=== PATIENT | female | born 1990 | race Caucasian/White ===

== ENCOUNTER → 2019-08-26 | Outpatient (CLI) | payer OTHER ==
--- NOTE | 2019-08-27 08:48 | Diagnostic Imaging Report ---
#[id number] - MGDXLT #UNILATERAL LEFT DIGITAL DIAGNOSTIC MAMMOGRAM WITH CAD: 08/26/2019 CLINICAL: Palpable lump left breast. No prior exams were available for comparison. The tissue of the left breast is heterogeneously dense, which lowers the sensitivity of mammography. Current study was also evaluated with a Computer Aided Detection (CAD) system. There is a 4.9 cm oval high density mass with a circumscribed margin in the left breast at 12 o'clock middle depth. No other significant masses or calcifications are seen in the breast. IMPRESSION: INCOMPLETE: NEEDS ADDITIONAL IMAGING EVALUATION The 4.9 cm oval high density mass in the left breast is indeterminate. An ultrasound is recommended and will be performed during the same visit. LISA MUNOZ M.D. kw/:08/26/2019 16:08:54 Associate Professor Of Library Science: Ara ALEX)(Balbir), [facility] Mammogram BI-RADS: 0 Indeterminate
--- NOTE | 2019-08-27 08:48 | Diagnostic Imaging Report ---
#[id number] - USBRELIMLT ULTRASOUND OF THE LEFT BREAST : 08/26/2019 Comparison is made to exam dated: 08/26/2019 mammogram - [facility]. Color flow and real-time ultrasound were performed on the left breast. Hernández scale images of the real-time examination were reviewed. There is a 3.3 cm oval mass with a lobulated margin in the left breast at 1 o'clock posterior depth. This oval mass is hypoechoic. This correlates with mammography findings. IMPRESSION: SUSPICIOUS OF MALIGNANCY - FOLLOW-UP RECOMMENDED The 3.3 cm oval mass in the left breast is suspicious. An ultrasound guided biopsy is recommended. A phone call was made to the physician's office. The patient has been or will be contacted. LISA MUNOZ M.D. kw/:08/26/2019 16:10:56 Safety Deposit Clerk: COURTNEY WARREN [facility], [facility] letter sent: Biopsy Required Ultrasound BI-RADS: 4 Suspicious abnormality
== END ==
LOC: US 13:55
PROVIDERS: ATTEND Obstetrics & Gynecology
DX: N63.20 Unspecified lump in the left breast, unspecified quadrant (principal)

== ENCOUNTER → 2019-09-10 | Day surgery (SDC) | payer OTHER ==
[2019-09-04 15:03] LABS: BASOPHILS % 0.5 % (0.0-1.0); EOSINOPHILS # (AUTO) 0.1 (0.0-0.4); EOSINOPHILS % 1.5 % (0.0-6.0); LYMPHOCYTES # (AUTO) 1.8 (1.0-3.2); MEAN CORPUSCULAR HEMOGLOBIN 24.2 pg (28-32); MEAN CORPUSCULAR HGB CONC 30.8 g/dL (31-35); MEAN CORPUSCULAR VOLUME 78.6 fL (81-99); MONOCYTES # (AUTO) 0.4 (0.2-0.8); MONOCYTES % 5.5 % (4.4-11.3); NEUTROPHILS # (AUTO) 4.2 (2.1-6.9); NEUTROPHILS % 64.3 % (38.7-80.0); PLATELET COUNT 231 x10e3/uL (140-360); RED BLOOD COUNT 4.96 x10e6/uL (3.6-5.1); RED CELL DISTRIBUTION WIDTH 13.7 % (11.7-14.4)
[2019-09-04 15:27] LABS: ALANINE AMINOTRANSFERASE 36 IU/L (0-55); ALBUMIN 3.8 g/dL (3.5-5.0); ALBUMIN/GLOBULIN RATIO 1.2 (0.8-2.0); ALKALINE PHOSPHATASE 48 IU/L (40-150); ANION GAP 10.9 mmol/L (8-16); BLOOD UREA NITROGEN 15 mg/dL (7-26); BUN/CREATININE RATIO 17 (6-25); CARBON DIOXIDE 25 mmol/L (22-29); CHLORIDE 110 mmol/L (98-107); EST GLOMERULAR FILTRATION RATE > 60 ML/MIN (60-); GLUCOSE 92 mg/dL (74-118); POTASSIUM 3.9 mmol/L (3.5-5.1); SODIUM 142 mmol/L (136-145)
[~2019-09-10] MED LIST: BUPIVACAINE 0.25% 30ML SDV INJ ONE; BUPIVACAINE 0.25%/EPI 30ML SDV INJ ONE; DEXAMETHASONE SOD PHOS INJ 4 MG/ML VIAL ONE; FENTANYL CITRATE/PF 100MCG/2 ML INJ ONE; KETOROLAC TROMETHAMINE 30 MG/ML VIAL ONE; LIDOCAINE HCL 2% LOCAL INJ 5 ML SDV VIAL INJ ONE; ONDANSETRON HCL INJ 2MG/ML 2ML 2 MG/ML VIAL ONE; PRENATAL VITAM1 EACH PO; PROPOFOL IV EMULSION 10 MG/ML 20 ML VIAL ONE; SEVOFLURANE INHAL SOLN 250 ML PEN BTL ONE
--- NOTE | 2019-09-10 11:03 | Operative Report ---
DATE OF PROCEDURE: 09/10/2019 SURGEON: Maikel Cheng MD PREOPERATIVE DIAGNOSIS: Left breast mass. POSTOPERATIVE DIAGNOSIS: Left breast mass, probable fibroadenoma. OPERATION PERFORMED: Left partial mastectomy. MANAGER RESPIRATORY CARE: DRAKE Murry. ANESTHESIA: General. COMPLICATIONS: None. ESTIMATED BLOOD LOSS: Minimal. DESCRIPTION OF PROCEDURE: With the patient lying in bed in the supine position under good general anesthesia, the left breast was prepped with Betadine solution and draped in the usual manner. The area overlying the mass in the upper outer quadrant of the left breast was then infiltrated with 0.25% Marcaine with epinephrine. An incision was made, carried down through the subcutaneous tissue and immediately, a mass was encountered, which appeared to be well encapsulated. However, there was a lot of reaction around the lesion perhaps related to the recent with engorgement of the breast. Clinically, this appeared to be some sort of fibroadenoma. The mass was then slowly and carefully from all of the surrounding structures and sent for pathological examination without violating any of its borders. Hemostasis was then ascertained. The breast tissue was then reapproximated with interrupted sutures of 2-0 chromic and the skin was closed with subcuticular 5-0 Vicryl. Benzoin, Steri-Strips, and dressings were applied. The sponge, lap, and needle count was correct. The patient tolerated the procedure well and returned to the recovery room in stable condition. Maikel Cheng MD JLR/MODL /[id number]
[2019-09-10 12:00] VITALS: BP 121/76
== END | disposition home or self-care (01) ==
LOC: OR 07:09
PROVIDERS: ATTEND Surgery
DX: C50.912 Malignant neoplasm of unspecified site of left female breast (principal); Z17.1 Estrogen receptor negative status [ER-]; F32.9 Major depressive disorder, single episode, unspecified; F41.9 Anxiety disorder, unspecified; Z01.812 Encounter for preprocedural laboratory examination; Z11.59 Encounter for screening for other viral diseases
CPT/HCPCS: 19301; 36415; 80053; 81025; 85025; 88305; 88342; J1100; J1885; J2001; J2405; J2704; J3010; U0002; 88307